=== PATIENT | female | born 1995 | race Caucasian/White ===

== ENCOUNTER 2016-06-19 12:50 | Emergency (ER) | payer OTHER ==
[~2016-06-19] VITALS: Ht 160 cm; Wt 54.5 kg
[~2016-06-19 12:50] MED LIST: FERR325T5 PO; FOLI-49 PO; PREN-39 PO
[2016-06-19 12:54] VITALS: Ht 160 cm; Wt 54.5 kg
[2016-06-19] MEDS ORDERED: FAMOTIDINE 20 MG INJ IV STA (13:00)
[2016-06-19] MEDS ORDERED: ONDANSETRON 4 MG INJ IV STA (13:00)
[2016-06-19] MEDS ORDERED: SOD CHLORIDE 0.9% 1,000 ML IV STA (13:00)
[2016-06-19] MEDS ORDERED: KETOROLAC 30 MG INJ IV STA (13:00)
[2016-06-19 13:32] LABS: ADD SCAN DIFF NO
[2016-06-19 13:54] LABS: POTASSIUM 4.4 mmol/L (3.5-5.1)
[2016-06-19 13:56] LABS: BASOPHILS % 0.2 % (0.0-2.0); BILIRUBIN,INDIRECT 0.3 mg/dl (0-1.1); BILIRUBIN,TOTAL 0.3 mg/dl (0.2-1.3); CREATININE 0.58 mg/dl (0.44-1.00); HEMATOCRIT 41.6 % (37.0-47.0); HEMOGLOBIN 13.6 g/dl (12.0-16.0); LYMPHOCYTES # 1.6 10^3/ul (0.8-2.9); LYMPHOCYTES % 9.3 % (18.0-55.0); MEAN CORPUSCULAR HEMOGLOBIN 27.1 pg (29.0-33.0); MEAN CORPUSCULAR HGB CONC 32.7 g/dl (32.0-37.0); MEAN PLATELET VOLUME 12.1 fl (7.4-10.4); MONOCYTE # 0.5 10^3/ul (0.3-0.9); MONOCYTES % 2.8 % (0.0-13.0); NEUTROPHIL # 14.7 10^3/ul (1.6-7.5); NEUTROPHILS % 87.2 % (30.0-74.0); PLATELET COUNT 319 10^3/UL (140-415); RED BLOOD COUNT 5.01 10^6/ul (4.20-5.40); RED CELL DISTRIBUTION WIDTH 13.9 % (11.5-14.5); WHITE BLOOD COUNT 16.9 10^3/ul (4.8-10.8)
[2016-06-19 13:57] LABS: ALBUMIN/GLOBULIN RATIO 1.38; CALCIUM 10.5 mg/dl (8.4-10.2); TOTAL PROTEIN 8.6 g/dl (6.1-8.1)
[2016-06-19 14:12] LABS: ADD UMIC YES; URINE BILIRUBIN (Dip) NEGATIVE (NEGATIVE); URINE BLOOD (Dip) NEGATIVE (NEGATIVE); URINE COLOR LT. YELLOW (YELLOW); URINE GLUCOSE (Dip) NEGATIVE (NEGATIVE); URINE KETONES (Dip) TRACE (NEGATIVE); URINE LEUKOCYTE ESTERASE (Dip) NEGATIVE (NEGATIVE); URINE NITRITE (Dip) NEGATIVE (NEGATIVE); URINE TOTAL PROTEIN (Dip) 1+ (NEGATIVE); URINE UROBILINOGEN (Dip) 0.2 E.U./dL (0.1-1.0)
[2016-06-19 14:24] LABS: BACTERIA,URINE RARE; URINE RBCS NONE SEEN /HPF (0)
--- NOTE | 2016-06-19 15:10 | RADRPT ---
PROCEDURE: CT Abdomen and Pelvis without contrast CLINICAL INDICATION: Right flank pain TECHNIQUE: Transaxial images were obtained through the abdomen and pelvis on a multi-slice scanner without the intravenous contrast administration. Sagittal and coronal re-formations were subsequen tly reconstructed. One or more of the following dose reduction techniques were used: - Automated exposure control. - Adjustment of the mA and/or kV according to patient size. - Use of iterative reconstruction technique. Radiation dose: CTDIvol = 7.37 mGy; DLP = 415.91 mGy-cm. COMPARISON: No prior studies are available for comparison. FINDINGS: Lung bases: The visualized lung bases appear unremarkable. Liver: Normal in size and in attenuation. There is no focal lesion. Gallbladder: The wall is not thickened. No radiopaque stones are identified. Bile ducts: The intra and extrahepatic bile ducts are normal in caliber. Pancreas: Appears normal with no mass or inflammation evident. Spleen: Normal in size with no focal lesion. Adrenals: Normal with no mass identified. Kidneys, ureters and bladder: The kidneys are normal in size and there is no mass, pathological calc ification, or hydronephrosis evident. There is no perinephric stranding. The ureters are normal in c aliber and no ureteroliths are identified. The bladder appears unremarkable. Reproductive organs: The uterus is midline. There is a right adnexal cyst measuring 7.5 x 6.4 x 5.4 cm located posterior to the uterus anterior to the rectum and to the right of the sigmoid colon. Stomach and bowel: The bowel appears unremarkable with no evidence of bowel obstruction or inflammat ion. The stomach appears unremarkable. Appendix: A normal vermiform appendix is evident. Peritoneum: No free intraperitoneal fluid or air is identified. There is a small fat containing umbi lical hernia. Aorta: Normal in caliber with no aneurysmal dilatation. IVC: Unremarkable. Lymph nodes: No pathologically enlarged nodes are identified. Osseous structures: The osseous elements appear intact. IMPRESSION: 1. There is a large right adnexal cyst measuring 7.5 x 6.4 x 5.4 cm located posterior to the uterus , anterior to the rectum and to the right of the distal sigmoid colon. The density measures 11 HU. 2. There is no evidence of urinary outflow obstruction or ureterolithiasis. The bladder appears no rmal. 3. No evidence of bowel obstruction or inflammation with a normal-appearing vermiform appendix. 4. There is no free intraperitoneal fluid or air. Tahmina Alex Physician Date Time Electronically viewed and signed by Tahmina Alex Physician on 06/19/2016 15:10 /
--- NOTE | 2016-06-19 15:21 | ERD ---
ER Documentation Chief Complaint Date/Time DATE: 06/19/16 TIME: 15:18 Chief Complaint flank pain x 1 hour HPI This is a 20-year-old female who presents to the emergency room for evaluation of flank pain for the past 1 hour. The patient localizes the pain to the right flank with mild radiation to her groin. She does state it is an achy pain and she has vomited once. The patient denies any painful urination, or blood in her urine and came to the emergency room today for evaluation. ROS All systems reviewed and are negative except as per history of present illness. Medications Home Meds Discontinued Reported Medications Folic Acid* (Folic Acid*) 1 Mg Tablet, 1 MG PO DAILY, TAB 02/02/16 Ferrous Sulfate (Ferrous Sulfate) 325 Mg Tablet.dr, 325 MG PO DAILY 02/02/16 Vits W-Ca,Fe,Fa(<1MG) ( Vitamins) 1 Tab Tablet, 1 TAB PO DAILY 07/05/13 Allergies Allergies: Coded Allergies: No Known Allergy (Unverified , 04/13/13) PMhx/Soc Medical and Surgical Hx: pt denies Medical Hx, pt denies Surgical Hx History of Surgery: No Anesthesia Reaction: No Hx Neurological Disorder: No Hx Respiratory Disorders: No Hx Cardiac Disorders: No Hx Psychiatric Problems: No Hx Miscellaneous Medical Probl: No Hx Alcohol Use: Yes Hx Substance Use: No Hx Tobacco Use: No Smoking Status: Current every day smoker Physical Exam Vitals Vital Signs Date Time Temp Pulse Resp B/P Pulse Ox O2 Delivery O2 Flow Rate FiO2 06/19/16 12:54 97.7 90 18 130/87 100 Physical Exam INITIAL VITAL SIGNS: Reviewed by me GENERAL: The patient is well developed and appropriate for usual state of health in no apparent distress HEENT: Pupils equal, round, and reactive to light. EOMI. There is no scleral icterus. NECK: C-spine is soft and supple, there is no meningismus. There is no cervical lymphadenopathy. LUNGS: Clear to auscultation bilaterally. There are no rales, wheezes or rhonchi. HEART: Regular rate and rhythm, no murmurs, clicks, rubs or gallops. ABDOMEN: Right-sided CVAT, otherwise soft, non-tender, non-distended. There are bowel sounds in all four quadrants. No rebound or guarding. EXTREMITIES: There is no peripheral cyanosis or edema. No focal swelling or erythema. NEUROLOGICAL: The patient moves all four extremities with 5/5 strength. Cranial nerves II - XII are intact. Normal gait. Alert and oriented SKIN: There is no apparent rash or petechiae. HEME/LYMPHATIC: There is no evidence of excessive bruising or lymphedema. PSYCHIATRIC: The patient does not appear anxious or depressed. Result Diagram: 06/19/16 1324 06/19/16 1324 Results 24 hrs Laboratory Tests Test 06/19/16 12:57 06/19/16 13:24 Urine Bacteria RARE Urine Bilirubin NEGATIVE Urine Clarity CLEAR Urine Color LT. YELLOW Urine Epithelial Cells RARE Urine Glucose NEGATIVE% Urine Hemoglobin NEGATIVE Urine Ketones TRACE Urine Leukocyte Esterase NEGATIVE Urine Microscopic RBC NONE SEEN/HPF Urine Microscopic WBC 2-5/HPF Urine Nitrite NEGATIVE Urine Specific [place] 1.010 Urine Total Protein 1+ Urine Urobilinogen 0.2 E.U./dL Urine pH 7.0 Alanine Aminotransferase (ALT/SGPT) 36IU/L Albumin 5.0g/dl Albumin/Globulin Ratio 1.38 Alkaline Phosphatase 175IU/L Anion Gap 22 Aspartate Amino Transf (AST/SGOT) 28IU/L Basophils # 0.010^3/ul Basophils % 0.2% Blood Urea Nitrogen 13mg/dl Calcium Level 10.5mg/dl Carbon Dioxide Level 29mmol/L Chloride Level 100mmol/L Creatinine 0.58mg/dl Direct Bilirubin 0.00mg/dl Eosinophils # 0.010^3/ul Eosinophils % 0.0% Globulin 3.60g/dl Glucose Level 105mg/dl Hematocrit 41.6% Hemoglobin 13.6g/dl Indirect Bilirubin 0.3mg/dl Lipase 49U/L Lymphocytes # 1.610^3/ul Lymphocytes % 9.3% Mean Corpuscular Hemoglobin 27.1pg Mean Corpuscular Hemoglobin Concent 32.7g/dl Mean Corpuscular Volume 83.0fl Mean Platelet Volume 12.1fl Monocytes # 0.510^3/ul Monocytes % 2.8% Neutrophils # 14.710^3/ul Neutrophils % 87.2% Nucleated Red Blood Cells # 0.010^3/ul Nucleated Red Blood Cells % 0.0/100WBC Platelet Count 97758^3/UL Potassium Level 4.4mmol/L Red Blood Count 5.0110^6/ul Red Cell Distribution Width 13.9% Sodium Level 147mmol/L Total Bilirubin 0.3mg/dl Total Protein 8.6g/dl White Blood Count 16.910^3/ul Current Medications Medications (Trade) Dose Ordered Sig/Bassem Route PRN Reason Start Time Stop Time Status Last Admin Dose Admin Sodium Chloride (NS) 1,000 ml @ 1,000 mls/hr Q1H STAT IV 06/19/16 13:00 06/19/16 13:59 DC 06/19/16 13:05 Ondansetron HCl (Zofran Inj) 4 mg ONCE STAT IV 06/19/16 13:00 06/19/16 13:03 DC 06/19/16 13:05 Famotidine (Pepcid Iv) 20 mg ONCE STAT IV 06/19/16 13:00 06/19/16 13:03 DC 06/19/16 13:05 Ketorolac Tromethamine (Toradol) 30 mg ONCE STAT IV 06/19/16 13:00 06/19/16 13:03 DC 06/19/16 13:05 Procedures/MDM This 20-year-old female presents to the emergency room for evaluation of right- sided flank pain for the past 1 hour. The patient states that the pain is a sharp pain in when I evaluated her she did have some right-sided costovertebral angle tenderness. The patient states that she vomited once and was given Zofran , Toradol, and IV fluids. Lab work was also drawn and a urinalysis was obtained. Lab work does show leukocytosis, however there is no bacteria in the urine. His CT of the abdomen and pelvis was obtained to rule out appendicitis and or kidney stones. There is no signs of appendicitis on CAT scan. The patient's pain is controlled at this time, however her CAT scan did show large right adnexal cyst. I do feel that this cyst could be a cause of this patient' s pain. I advised her to follow-up with the [employer] physician for ultrasound as an outpatient. The patient verbalized understanding. She is hemodynamically stable, afebrile, no acute distress and will be discharged home with a prescription for Motrin and Zofran. I advised her to return to the ER if her symptoms worsen and she verbalized understanding Departure Diagnosis: Primary Impression: Flank pain Additional Impressions: Leukocytosis Adnexal cyst Condition: Stable EMORY BLEVINS DO Jun 19, 2016 15:21
[2016-06-19] MEDS ORDERED: IBUP800T25 PO (15:23)
[2016-06-19] MEDS ORDERED: ONDA4TAB8 PO (15:23)
[2016-06-20] MEDS ORDERED: MEPERIDINE 25 MG INJ ONE (14:57)
== END 2016-06-19 15:30 | disposition home or self-care (01) ==
LOC: E/R 12:50
DX: R10.9 Unspecified abdominal pain (principal); D72.829 Elevated white blood cell count, unspecified; N83.209 Unspecified ovarian cyst, unspecified side; F17.210 Nicotine dependence, cigarettes, uncomplicated; R11.10 Vomiting, unspecified
CPT/HCPCS: 36415; 74176; 80053; 81001; 83690; 85025; 96374; 96375; J1885; J2405; J7030; Z7502; Z7610; 81003; J2175

== ENCOUNTER 2016-06-19 21:19 | Observation (INO) | payer OTHER ==
[~2016-06-19] VITALS: Ht 162.6 cm; Wt 63.6 kg
[~2016-06-19 21:19] MED LIST changes: +IBUP800T25 PO; +ONDA4TAB8 PO
[2016-06-19] MEDS ORDERED: ONDANSETRON 4 MG INJ IV STA (22:10)
[2016-06-19] MEDS ORDERED: SOD CHLORIDE 0.9% 1,000 ML IV STA (22:10)
[2016-06-19] MEDS ORDERED: morphine 4 MG/ML VIAL IV STA (22:10)
--- NOTE | 2016-06-19 22:49 | RADRPT ---
PROCEDURE: Pelvic ultrasound. CLINICAL INDICATION: Pelvic pain TECHNIQUE: Ching scale, color doppler, spectral doppler ultrasound of the pelvis was performed with transabdominal transducers. COMPARISON: Pelvic ultrasound 02/02/2016, CT abdomen pelvis 06/19/2016 FINDINGS: Uterus: Position: Anteverted. Normal myometrial echogenicity. Normal appearance of the endometrium. Ovaries: Right ovary is enlarged flow. Normal size left ovary appears blood flow. No adnexal masses. 6.8 x 4.8 x 5.5 cm cyst of the right ovary. Free fluid: None. Measurements: Endometrium: 0.18 cm Uterus: 8.7 x 3.6 x 4.5 cm Right ovary: 9.3 x 5.8 x 7.2 cm Left ovary: 3.4 x 1.4 x 3.2 cm IMPRESSION: 6.8 x 4.8 x 5.5 cm cyst of the right ovary is unchanged from the previous examinations. Normal appearance of the uterus and left ovary. RPTAT: AADD .Sathish Longoria MD, MD Date Time Electronically viewed and signed by .Sathish Longoria MD, on 06/19/2016 22:48 .B/
[2016-06-19 23:13] LABS: ADD SCAN DIFF NO
[2016-06-19 23:20] LABS: BASOPHILS % 0.3 % (0.0-2.0); EOSINOPHILS % 0.1 % (0.0-7.0); HEMATOCRIT 37.3 % (37.0-47.0); HEMOGLOBIN 11.9 g/dl (12.0-16.0); LYMPHOCYTES # 2.4 10^3/ul (0.8-2.9); LYMPHOCYTES % 17.3 % (18.0-55.0); MEAN CORPUSCULAR HEMOGLOBIN 26.6 pg (29.0-33.0); MEAN CORPUSCULAR HGB CONC 31.9 g/dl (32.0-37.0); MEAN CORPUSCULAR VOLUME 83.3 fl (72.0-104.0); MEAN PLATELET VOLUME 12.2 fl (7.4-10.4); MONOCYTE # 0.8 10^3/ul (0.3-0.9); MONOCYTES % 5.6 % (0.0-13.0); NEUTROPHIL # 10.7 10^3/ul (1.6-7.5); NEUTROPHILS % 76.4 % (30.0-74.0); PLATELET COUNT 284 10^3/UL (140-415); RED BLOOD COUNT 4.48 10^6/ul (4.20-5.40); RED CELL DISTRIBUTION WIDTH 14.1 % (11.5-14.5); WHITE BLOOD COUNT 13.9 10^3/ul (4.8-10.8)
[2016-06-19] MEDS ORDERED: HYDROmorphONE 1 MG/ML SYG IV STA (23:21)
[2016-06-19 23:24] LABS: ALBUMIN 4.8 g/dl (3.3-4.9); POTASSIUM 3.9 mmol/L (3.5-5.1)
[2016-06-19 23:26] LABS: CREATININE 0.62 mg/dl (0.44-1.00)
[2016-06-19 23:27] LABS: ALBUMIN/GLOBULIN RATIO 1.45; BILIRUBIN,INDIRECT 0.2 mg/dl (0-1.1); BILIRUBIN,TOTAL 0.2 mg/dl (0.2-1.3); CALCIUM 9.9 mg/dl (8.4-10.2); TOTAL PROTEIN 8.1 g/dl (6.1-8.1)
[2016-06-19 23:38] LABS: ADD UMIC YES; URINE BILIRUBIN (Dip) NEGATIVE (NEGATIVE); URINE BLOOD (Dip) TRACE (NEGATIVE); URINE COLOR LT. YELLOW (YELLOW); URINE GLUCOSE (Dip) NEGATIVE (NEGATIVE); URINE KETONES (Dip) TRACE (NEGATIVE); URINE LEUKOCYTE ESTERASE (Dip) 1+ (NEGATIVE); URINE NITRITE (Dip) NEGATIVE (NEGATIVE); URINE TOTAL PROTEIN (Dip) NEGATIVE (NEGATIVE); URINE UROBILINOGEN (Dip) 0.2 E.U./dL (0.1-1.0)
[2016-06-19 23:51] LABS: BACTERIA,URINE OCCASIONAL; SQUAMOUS EPITHELIAL CELL,UR MODERATE; URINE RBCS 0-2 /HPF (0)
[2016-06-20] VITALS (25 sets, daily range): BP systolic 96–136; BP diastolic 6–82; PULSE 70–106; RESP 13–20; TEMP 99; Ht 162.6 cm; Wt 63.6 kg
--- NOTE | 2016-06-20 02:41 | ERD ---
ER Documentation Chief Complaint Date/Time DATE: 06/20/16 TIME: 02:22 Chief Complaint SEEN HERE THIS AM. CYST IN UTERUS. UNABLE TO BEAR PAIN HPI Patient is a 20-year-old female who presents to the emergency department with right-sided pelvic pain. Patient was seen earlier today and diagnosed with a right ovarian cyst. Patient states that her current pain level is a 10 out of 10. Patient states the pain is severe. The pain is localized and does not radiate. Patient states she has been taking ibuprofen with no alleviation of symptoms. She also reports 2 episodes of vomiting. Patient denies any fever, chills, nausea, and with urination, chest pain, shortness of breath or loss of consciousness. She denies any vaginal bleeding or excessive vaginal discharge. Upon chart review, patient CT scan from today performed showed IMPRESSION: 1. There is a large right adnexal cyst measuring 7.5 x 6.4 x 5.4 cm located posterior to the uterus, anterior to the rectum and to the right of the distal sigmoid colon. The density measures 11 HU. 2. There is no evidence of urinary outflow obstruction or ureterolithiasis. The bladder appears normal. 3. No evidence of bowel obstruction or inflammation with a normal-appearing vermiform appendix. 4. There is no free intraperitoneal fluid or air. ROS All systems reviewed and are negative except as per history of present illness. Medications Home Meds Active Scripts Ondansetron Hcl* (Zofran*) 4 Mg Tablet, 4 MG PO Q8H Y for NAUSEA AND/OR VOMITING , #15 TAB Prov:EMORY BLEVINS DO 06/19/16 Ibuprofen* (Motrin*) 800 Mg Tab, 800 MG PO Q6H Y for PAIN AND OR ELEVATED TEMP, #30 TAB Prov:EMORY BLEVINS DO 06/19/16 Discontinued Reported Medications Folic Acid* (Folic Acid*) 1 Mg Tablet, 1 MG PO DAILY, TAB 02/02/16 Ferrous Sulfate (Ferrous Sulfate) 325 Mg Tablet.dr, 325 MG PO DAILY 02/02/16 Vits W-Ca,Fe,Fa(<1MG) ( Vitamins) 1 Tab Tablet, 1 TAB PO DAILY 07/05/13 Allergies Allergies: Coded Allergies: No Known Allergy (Unverified , 04/13/13) PMhx/Soc Medical and Surgical Hx: pt denies Surgical Hx History of Surgery: No Anesthesia Reaction: No Hx Neurological Disorder: No Hx Respiratory Disorders: No Hx Cardiac Disorders: No Hx Psychiatric Problems: No Hx Miscellaneous Medical Probl: Yes (uterine cyst) Hx Alcohol Use: Yes (socially) Hx Substance Use: No Hx Tobacco Use: No Smoking Status: Never smoker FmHx Family History: No diabetes Physical Exam Vitals Vital Signs Date Time Temp Pulse Resp B/P Pulse Ox O2 Delivery O2 Flow Rate FiO2 06/20/16 01:38 99.0 88 18 145/78 98 Room Air 06/19/16 21:30 100.3 103 24 177/72 100 Physical Exam GENERAL: Well-developed, well-nourished female. Appears in no acute distress. HEAD: Normocephalic, atraumatic. EYES: Pupils are equally reactive bilaterally. EOMs grossly intact. No conjunctival erythema. ENT: Moist mucous membranes. No uvula deviation. No kissing tonsils. NECK: Supple. No meningismus. Normal range of motion of the neck. LUNG: Clear to auscultation bilaterally. No rhonchi, wheezing, rales or coarse breath sounds. HEART: Regular rate and rhythm. No murmurs, rubs or gallops. ABDOMEN: No scars, ecchymosis or rashes noted. Soft and nondistended. Tender to palpation of the right pelvic region. Positive bowel sounds in all four quadrants. No rebound tenderness, no guarding. No CVA tenderness. BACK: No midline tenderness. EXTREMITIES: Equal pulses bilaterally. No peripheral clubbing, cyanosis or edema. No unilateral leg swelling. NEUROLOGIC: Alert and oriented. Moving all four extremities without any difficulty. Normal speech. Steady gait. SKIN: Normal color. Warm and dry. No rashes or lesions. Result Diagram: 06/19/16 2300 06/19/16 2300 Results 24 hrs Laboratory Tests Test 06/19/16 23:00 Alanine Aminotransferase (ALT/SGPT) 40IU/L Albumin 4.8g/dl Albumin/Globulin Ratio 1.45 Alkaline Phosphatase 165IU/L Anion Gap 21 Aspartate Amino Transf (AST/SGOT) 29IU/L Basophils # 0.010^3/ul Basophils % 0.3% Blood Urea Nitrogen 15mg/dl Calcium Level 9.9mg/dl Carbon Dioxide Level 26mmol/L Chloride Level 103mmol/L Creatinine 0.62mg/dl Direct Bilirubin 0.00mg/dl Eosinophils # 0.010^3/ul Eosinophils % 0.1% Globulin 3.30g/dl Glucose Level 107mg/dl Hematocrit 37.3% Hemoglobin 11.9g/dl Indirect Bilirubin 0.2mg/dl Lipase 54U/L Lymphocytes # 2.410^3/ul Lymphocytes % 17.3% Mean Corpuscular Hemoglobin 26.6pg Mean Corpuscular Hemoglobin Concent 31.9g/dl Mean Corpuscular Volume 83.3fl Mean Platelet Volume 12.2fl Monocytes # 0.810^3/ul Monocytes % 5.6% Neutrophils # 10.710^3/ul Neutrophils % 76.4% Nucleated Red Blood Cells # 0.010^3/ul Nucleated Red Blood Cells % 0.0/100WBC Platelet Count 67556^3/UL Potassium Level 3.9mmol/L Red Blood Count 4.4810^6/ul Red Cell Distribution Width 14.1% Sodium Level 146mmol/L Total Bilirubin 0.2mg/dl Total Protein 8.1g/dl Urine Bacteria OCCASIONAL Urine Bilirubin NEGATIVE Urine Clarity CLEAR Urine Color LT. YELLOW Urine Glucose NEGATIVE% Urine Hemoglobin TRACE Urine Ketones TRACE Urine Leukocyte Esterase 1+ Urine Microscopic RBC 0-2/HPF Urine Microscopic WBC 5-10/HPF Urine Nitrite NEGATIVE Urine Specific [place] 1.015 Urine Squamous Epithelial Cells MODERATE Urine Total Protein NEGATIVE Urine Urobilinogen 0.2 E.U./dL Urine pH 7.0 White Blood Count 13.910^3/ul Current Medications Medications (Trade) Dose Ordered Sig/Bassem Route PRN Reason Start Time Stop Time Status Last Admin Dose Admin Sodium Chloride (NS) 1,000 ml @ 1,000 mls/hr Q1H STAT IV 06/19/16 22:10 06/19/16 23:09 DC 06/19/16 22:55 Morphine Sulfate (morphine) 4 mg ONCE STAT IV 06/19/16 22:10 06/19/16 22:12 DC 06/19/16 22:47 Ondansetron HCl (Zofran Inj) 4 mg ONCE STAT IV 06/19/16 22:10 06/19/16 22:12 DC 06/19/16 22:46 Hydromorphone HCl (Dilaudid) 1 mg ONCE STAT IV 06/19/16 23:21 06/19/16 23:22 DC 06/19/16 23:26 Procedures/MDM ED COURSE: The patient was stable throughout ED course. I kept the patient and/or family informed of laboratory and diagnostic imaging results throughout the ED course. DIAGNOSTIC IMAGING: Read by radiologist. DIAGNOSTIC IMAGING REPORT Patient: LING SHI : 1995 Age: 20 Sex: F MR #: [id number] DOS: 06/19/16 2210 Ordering MD: FOSTER PRYOR PA-C Location: [facility] Room/Bed: PROCEDURE: Pelvic ultrasound. CLINICAL INDICATION: Pelvic pain TECHNIQUE: Ching scale, color doppler, spectral doppler ultrasound of the pelvis was performed with transabdominal transducers. COMPARISON: Pelvic ultrasound 02/02/2016, CT abdomen pelvis 06/19/2016 FINDINGS: Uterus: Position: Anteverted. Normal myometrial echogenicity. Normal appearance of the endometrium. Ovaries: Right ovary is enlarged flow. Normal size left ovary appears blood flow. No adnexal masses. 6.8 x 4.8 x 5.5 cm cyst of the right ovary. Free fluid: None. Measurements: Endometrium: 0.18 cm Uterus: 8.7 x 3.6 x 4.5 cm Right ovary: 9.3 x 5.8 x 7.2 cm Left ovary: 3.4 x 1.4 x 3.2 cm IMPRESSION: 6.8 x 4.8 x 5.5 cm cyst of the right ovary is unchanged from the previous examinations. Normal appearance of the uterus and left ovary. RPTAT: AADD .Sathish Longoria MD, MD Date Time Electronically viewed and signed by .Sathish Longoria MD, MD on 06/19/2016 22:48 .B/ CC: FOSTER PRYOR PA-C PROCEDURES: None. MEDICATIONS GIVEN: IV fluids, Zofran, morphine, Dilaudid Patient tolerated medication well with no adverse reactions. Patient reported improvement in pain. MEDICAL DECISION MAKING: This is a 20-year-old female who presents with right pelvic pain 1 day. Patient was seen here earlier today and diagnosed with a right ovarian cyst. She was discharged with prescription for ibuprofen however patient states despite taking this medication his pain continues to be severe. Vital signs were reviewed. Patient is afebrile. CBC showed white count of 13.9. Patient's white count has decreased from earlier today which was noted to be 16.9. CMP showed no evidence of electrolyte abnormalities, severe acidosis, alkalosis, renal failure, or liver disease. Alk phos= 165. Lipase showed no evidence of acute pancreatitis. Urinalysis noted to be 1+ leukocyte esterase, 5-10 moderate WBCs, squamous epithelial cells. Sample may be contaminated. Low suspicion for UTI, pyelonephritis or nephrolithiasis. Urine test was negative. Pelvic ultrasound showed 6.8 x 4.8 x 5.5 cm cyst of the right ovary is unchanged from the previous examinations. Normal appearance of the uterus and left ovary. Right ovary is enlarged flow. Normal size left ovary appears blood flow. I discussed the patient's case with the laborist developmental electronics assembler, Dr. George. Given that the patient continues to have pain and the size of the patient's right ovarian cyst, patient will be admitted for observation and pain management. Dr. George requested that the patient be admitted to med surg floor. I discussed the patient's presentation with my supervising physician, Dr. Pearl, who is aware of the patient's admission. At this time, patient's presentation is most consistent with right ovarian cyst with intractable pain. Low suspicion of ovarian torsion, appendicitis, , ectopic , nephrolithiasis. Departure Diagnosis: Primary Impression: Right ovarian cyst Additional Impression: Intractable pain Condition: FOSTER Marcelo PA-C Jun 20, 2016 02:33
[2016-06-20] MEDS: HYDROmorphONE 1 MG/ML SYG IV PRN ×3 (05:29→09:59)
[2016-06-20] MEDS ORDERED: HYDROmorphONE 2 MG/ML SYG IV PRN (05:30)
[2016-06-20] MEDS ORDERED: ONDANSETRON 4 MG INJ IV PRN ×3 (05:30→15:30)
[2016-06-20] MEDS ORDERED: DEXTROSE 5%-LR 1,000 ML IV SCH (05:30)
[2016-06-20] MEDS ORDERED: HYDROmorphONE 1 MG/ML SYG IV STA (12:04)
[2016-06-20] MEDS ORDERED: LIDOCAINE 1%/EPI 30 ML INJ ONE (12:23)
[2016-06-20] MEDS ORDERED: LIDOCAINE 2% (SDV) 5 ML INJ ONE (12:43)
[2016-06-20] MEDS ORDERED: PROPOFOL 20 ML ONE (12:43)
[2016-06-20] MEDS ORDERED: FENTAnyl 50 MCG/ML VIAL ONE (12:43)
[2016-06-20] MEDS ORDERED: SUCCINYLCHOLINE CHLORIDE 100 MG/5 ML SYG IV ONE (12:43)
[2016-06-20] MEDS ORDERED: ROCURONIUM 50 MG INJ ONE (12:44)
[2016-06-20] MEDS ORDERED: MIDAZOLAM 1 MG/ML 2 ML INJ ONE (12:44)
[2016-06-20] MEDS ORDERED: CEFAZOLIN 1 GM INJ ONE (12:44)
--- NOTE | 2016-06-20 12:45 | PREOPHP ---
DATE OF ADMISSION: 06/20/2016 HISTORY OF PRESENT ILLNESS: The patient is a 20-year-old G1, P1 who is currently breast feeding wit h unknown last menstrual period, negative test, presents complaining of right-sided abdomi nal pain. The patient presented to the emergency room twice, today complaining of on and off abdomi nal pain. No nausea, vomiting, fevers, or chills. ALLERGIES: NONE. PAST SURGICAL HISTORY: None. OBSTETRIC HISTORY: x1 approximately 6 to 8 weeks ago. Ultrasound shows a 7 x 6 cm right ovari an cyst, although it shows there is normal blood flow. LABORATORY DATA: Hemoglobin is 11.9. ASSESSMENT: This is a 20-year-old with a 7 cm right ovarian cyst. The patient complains of intermi ttent pain. The patient has been seen twice in the emergency room for abdominal pain, and the patie nt currently is requiring Dilaudid, multiple doses, for pain control. The patient was consented for a laparoscopic, possible laparotomy with a right cystectomy, possible oophorectomy. Discussed the patient possibly has intermittent torsion and would require surgical management. Risks and benefits discussed. The risk of infection, bleeding, damage to other organs, possible blood transfusion, po ssible oophorectomy, all discussed with the patient. All questions answered. Again, the patient to the OR for a laparoscopy, possible laparotomy with a right cystectomy, possible oophorectomy. Dictated By: KASIA BARNETT MD /NTS Conf#: [id number] DID#: [id number]
[2016-06-20] MEDS ORDERED: OXYCODONE/ACETAMINOPHEN (5/325) TAB PO PRN ×2 (13:00)
[2016-06-20] MEDS ORDERED: HYDROmorphONE (0.2 MG/ML) 10ML SYG IV PRN ×2 (13:00)
[2016-06-20] MEDS ORDERED: PROCHLORPERAZINE 10 MG INJ IV PRN (13:00)
[2016-06-20] MEDS ORDERED: DIPHENHYDRAMINE 50 MG INJ IV PRN (13:00)
[2016-06-20] MEDS ORDERED: METOCLOPRAMIDE 10 MG INJ IV PRN (13:00)
[2016-06-20] MEDS ORDERED: MEPERIDINE 25 MG INJ IV PRN (13:00)
[2016-06-20] MEDS ORDERED: FENTAnyl 50 MCG/ML VIAL IV PRN (13:00)
[2016-06-20] MEDS ORDERED: DEXAMETHASONE 4 MG/ML 1 ML INJ ONE (13:08)
[2016-06-20] MEDS ORDERED: ONDANSETRON 4 MG INJ ONE (13:08)
[2016-06-20] MEDS ORDERED: NEOSTIGMINE 3 MG/3 ML SYRINGE ONE (14:19)
[2016-06-20] MEDS ORDERED: GLYCOPYRROLATE 0.4 MG INJ ONE (14:19)
[2016-06-20] MEDS ORDERED: LIDOCAINE 1%/EPI 30 ML INJ INJ ONE (14:41)
[2016-06-20] MEDS ORDERED: HYDROCODONE/APAP (5/325) TAB PO PRN ×2 (15:30)
[2016-06-20] MEDS ORDERED: IBUPROFEN 800 MG TAB PO PRN (15:30)
[2016-06-20] MEDS ORDERED: morphine 4 MG/ML VIAL IV PRN (15:30)
[2016-06-20] MEDS: LACTATED RINGER'S 1,000 ML IV* SCH (21:00)
--- NOTE | 2016-06-20 23:14 | OPR ---
DATE OF OPERATION: PREOPERATIVE DIAGNOSES: 1. Right ovarian cyst. 2. Ovarian torsion. POSTOPERATIVE DIAGNOSES: 1. Right ovarian cyst. 2. Ovarian torsion. PROCEDURE: Laparoscopy with a right ovarian detorsion and right ovarian cystectomy. SURGEON: Chandler Barnett MD COMPLICATIONS: None. ESTIMATED BLOOD LOSS: Minimal. SPECIMENS: Ovarian cyst. INDICATIONS FOR PROCEDURE: This is a 20-year-old G1, P0 who presented to the emergency room complaining of right flank abdominal pain. The patient was discharged home, but then returned to the hospital complaining of increased right flank pain. The patient was diagnosed with an approximately 7 cm ovarian cyst. Ultrasound did show that there was flow. The patient was admitted overnight on the ____. I took over management of the patient on the __morning approx 8 am__. Upon evaluating the patient this morning, the patient had no pain. We proceeded with observation; however, __later in the day __ the patient started having increased abdominal pain requiring Dilaudid. At this point, the patient was consented for a laparoscopy with right ovarian cystectomy. DESCRIPTION OF PROCEDURE: The patient was taken to the operating room where general anesthetic was found to be adequate. The patient was then prepped and draped in normal sterile fashion. _identity ___ confirmed. Using a scalpel, approximately 1 cm incision was made infraumbilically. The incision was then extended slightly. The Veress needle was placed intraabdominally. Proper placement was confirmed with the syringe test. CO2 insufflation was started at 2 liters a minute. Once proper placement was confirmed, the CO2 gas was insufflated until proper pressure was obtained. Next, the incision was slightly enlarged until a 12 mm trocar could be placed infraumbilically. Trocar was placed. The camera placed in. Next, a 5 mm trocar was placed suprapubically under direct observation without any difficulty. Next, a left lateral trocar was also placed approximately 8 cm superior to the pubic bone approximately 6 to 7 cm laterally on the left side. Again this was done under direct observation of the camera. Next, it was noted that the ovary on the right side had been torsed approximately 3 to 4 times. The fallopian tubes were both distended and swollen. Next, the ovary was detorsed with 2 graspers. Next, the ovarian cystectomy was performed. Using a Bovie, a small incision was made in the avascular side of the ovarian cyst. Post this, however, the ovarian cyst ruptured. Clear, nonsuspicious fluid was ____ from the cyst. This was suctioned out. Next, the ovarian cyst wall was then carefully removed from the ovary without any complications. The cyst wall was removed and sent to pathology. Post the detorsion and cystectomy, the ovary did regain some blood flow. No necrotic tissue was obtained. At this point, the fact that the ovary seemed to have adequate blood flow we did not feel the need oophorectomy was necessary. Again, the fallopian tube regained color and the ovary, although appeared purple color, it did regain better color post the detorsion and post ovarian cystectomy. Next, some Surgicel was placed inside the ovary. Some small areas of bleeding were ligated with a LigaSure and some Surgifoam was placed also on top of the ovary to ensure proper hemostasis. On second look , there was good hemostasis on the ovary. The ovary was detorsed. It appeared to be in good condition. The left ovary and tube were normal. Next, the gas was removed. The suprapubic trocar was removed under direct observation. Left lateral trocar was also removed under direct observation. After the gas had been removed, the infraumbilical trocar was also removed. Next, the infraumbilical incision site was closed with 0 Vicryl on a UR6 in running fashion until the fascia was closed. Next, the skin was closed with 4-0 Monocryl and Dermabond. Marcaine was also used for pain control. The patient tolerated the procedure well. Lap and needle counts were correct x2. The patient to recovery. Dictated By: CHANDLER BARNETT MD /NTS Conf#: [id number] DID#: [id number] CC: KANDICE CAMARA MD;*EndCC* MTDD
[2016-06-21 04:57] LABS: ADD SCAN DIFF NO
[2016-06-21] MEDS: LACTATED RINGER'S 1,000 ML IV* SCH ×2 (05:03→07:30)
[2016-06-21 05:04] LABS: BASOPHILS % 0.1 % (0.0-2.0); HEMATOCRIT 30.6 % (37.0-47.0); HEMOGLOBIN 9.7 g/dl (12.0-16.0); LYMPHOCYTES % 15.6 % (18.0-55.0); MEAN CORPUSCULAR HEMOGLOBIN 26.9 pg (29.0-33.0); MEAN CORPUSCULAR HGB CONC 31.7 g/dl (32.0-37.0); MEAN PLATELET VOLUME 12.5 fl (7.4-10.4); MONOCYTE # 0.7 10^3/ul (0.3-0.9); MONOCYTES % 5.5 % (0.0-13.0); NEUTROPHIL # 10.1 10^3/ul (1.6-7.5); NEUTROPHILS % 78.5 % (30.0-74.0); PLATELET COUNT 208 10^3/UL (140-415); WHITE BLOOD COUNT 12.8 10^3/ul (4.8-10.8)
[2016-06-21 05:20] VITALS: BP 101/54; PULSE 64; RESP 18
[2016-06-21 05:51] LABS: ALBUMIN 3.2 g/dl (3.3-4.9); POTASSIUM 4.1 mmol/L (3.5-5.1)
[2016-06-21 05:53] LABS: BILIRUBIN,INDIRECT 0.1 mg/dl (0-1.1); BILIRUBIN,TOTAL 0.1 mg/dl (0.2-1.3); CREATININE 0.62 mg/dl (0.44-1.00)
[2016-06-21 05:54] LABS: ALBUMIN/GLOBULIN RATIO 1.23; CALCIUM 9.2 mg/dl (8.4-10.2); TOTAL PROTEIN 5.8 g/dl (6.1-8.1)
[2016-06-21 08:09] VITALS: BP 99/55; RESP 16
--- NOTE | 2016-06-21 10:43 | DS ---
Date/Time of Note Date/Time of Note DATE: 06/21/16 TIME: 10:28 Discharge Summary Admission/Discharge Info Admit Date/Time June 20, 2016 Discharge Date/Time June 21, 2016 Final Diagnosis Twisted right adnexa Twisted right ovarian cyst Patient Condition: Good Consults This is a 21 years old 1 para 0 who had repeated complaint of the sharp right lower quadrant pain. She was seen at least 3 times in the emergency room with complain of the right lower quadrant pain The ultrasound revealed a mass of about 7 cm in diameter on the right ovary Finally which when she came in with the same complaint yesterday she was admitted in the hospital And underwent a year laparoscopic exploration and removal of the twisted right ovarian cyst and untwisting the right adnexa including ovary and tube. Today which is her first postop day she is doing well. She is afebrile basically no complaint of pain On exam her abdomen is soft very difficult tenderness. No rebound. No CVA The small incisions are healing well As I mentioned patient is doing very well and is ready to go home She was discharged home. I gave a prescription for Motrin 600 mg to be taken every 6-8 hours as needed pain She is advised to return to emergency room in case of severe pain ,dizziness, nausea and vomiting, or any other respiratory or other serious problem . She understands all of those and will go home with prescription End of dictation thank you20 Laboratory Tests Test 06/21/16 04:30 Alanine Aminotransferase (ALT/SGPT) 39IU/L Albumin 3.2g/dl Albumin/Globulin Ratio 1.23 Alkaline Phosphatase 81IU/L Anion Gap 12 Aspartate Amino Transf (AST/SGOT) 21IU/L Basophils # 0.010^3/ul Basophils % 0.1% Blood Urea Nitrogen 10mg/dl Calcium Level 9.2mg/dl Carbon Dioxide Level 29mmol/L Chloride Level 104mmol/L Creatinine 0.62mg/dl Direct Bilirubin 0.00mg/dl Eosinophils # 0.010^3/ul Eosinophils % 0.0% Globulin 2.60g/dl Glucose Level 116mg/dl Hematocrit 30.6% Hemoglobin 9.7g/dl Indirect Bilirubin 0.1mg/dl Lymphocytes # 2.010^3/ul Lymphocytes % 15.6% Mean Corpuscular Hemoglobin 26.9pg Mean Corpuscular Hemoglobin Concent 31.7g/dl Mean Corpuscular Volume 85.0fl Mean Platelet Volume 12.5fl Monocytes # 0.710^3/ul Monocytes % 5.5% Neutrophils # 10.110^3/ul Neutrophils % 78.5% Nucleated Red Blood Cells # 0.010^3/ul Nucleated Red Blood Cells % 0.0/100WBC Platelet Count 12465^3/UL Potassium Level 4.1mmol/L Red Blood Count 3.6010^6/ul Red Cell Distribution Width 14.0% Sodium Level 141mmol/L Total Bilirubin 0.1mg/dl Total Protein 5.8g/dl White Blood Count 12.810^3/ul Current Medications Medications (Trade) Dose Ordered Sig/Bassem Route PRN Reason Start Time Stop Time Status Last Admin Dose Admin Sodium Chloride (NS) 1,000 ml @ 1,000 mls/hr Q1H STAT IV 06/19/16 22:10 06/19/16 23:09 DC 06/19/16 22:55 Morphine Sulfate (morphine) 4 mg ONCE STAT IV 06/19/16 22:10 06/19/16 22:12 DC 06/19/16 22:47 Ondansetron HCl (Zofran Inj) 4 mg ONCE STAT IV 06/19/16 22:10 06/19/16 22:12 DC 06/19/16 22:46 Hydromorphone HCl (Dilaudid) 1 mg ONCE STAT IV 06/19/16 23:21 06/19/16 23:22 DC 06/19/16 23:26 Hydromorphone HCl (Dilaudid) 1 mg Q4H PRN IV PAIN 06/20/16 05:30 06/20/16 09:59 Hydromorphone HCl (Dilaudid) 2 mg Q4H PRN IV PAIN 06/20/16 05:30 Ondansetron HCl 4 mg 4 mg Q6H PRN IV NAUSEA AND/OR VOMITING 06/20/16 05:30 06/20/16 15:22 DC Dextrose/Lactated Ringer's (D5-Lr) 1,000 ml @ 125 mls/hr Q8H IV 06/20/16 05:30 06/20/16 15:18 DC 06/20/16 05:30 Hydromorphone HCl (Dilaudid) 1 mg ONCE STAT IV 06/20/16 12:04 06/20/16 12:09 DC 06/20/16 12:32 Lidocaine/ Epinephrine (Xylocaine 1%/ Epi) 30 ml STK-MED ONCE .ROUTE 06/20/16 12:23 06/20/16 12:24 DC Hydromorphone HCl (Dilaudid (Rec)) 0.2 mg PACU ORDER PRN IV MILD PAIN LEVEL 1-3 06/20/16 13:00 06/20/16 15:18 DC Hydromorphone HCl (Dilaudid (Rec)) 0.4 mg PACU ORDER PRN IV MODERATE PAIN LEVEL 4-6 06/20/16 13:00 06/20/16 15:18 DC Fentanyl (Sublimaze) 25 mcg PACU ORDER PRN IV MILD PAIN LEVEL 1-3 06/20/16 13:00 06/20/16 15:18 DC Oxycodone/ Acetaminophen (Percocet (5/ 325)) 1 tab PACU ORDER PRN PO PAIN LEVEL 1-5 06/20/16 13:00 06/20/16 15:18 DC Oxycodone/ Acetaminophen (Percocet (5/ 325)) 2 tab PACU ORDER PRN PO PAIN LEVEL 6-10 06/20/16 13:00 06/20/16 15:19 DC Ondansetron HCl (Zofran Inj) 4 mg PACU ORDER PRN IV NAUSEA AND/OR VOMITING 06/20/16 13:00 06/20/16 15:19 DC Metoclopramide HCl (Reglan) 10 mg PACU ORDER PRN IV NAUSEA AND/OR VOMITING 06/20/16 13:00 06/20/16 15:19 DC Prochlorperazine (Compazine Inj) 5 mg PACU ORDER PRN IV NAUSEA AND/OR VOMITING 06/20/16 13:00 06/20/16 15:19 DC Meperidine HCl (Demerol) 25 mg PACU ORDER PRN IV POST-OP RIGORS 06/20/16 13:00 06/20/16 15:19 DC 06/20/16 15:01 Diphenhydramine HCl (Benadryl) 25 mg PACU ORDER PRN IV PRURITUS 06/20/16 13:00 06/20/16 15:19 DC Lidocaine (Xylocaine 2% (Sdv)) 100 mg STK-MED ONCE .ROUTE 06/20/16 12:43 06/20/16 12:44 DC Succinylcholine Chloride 100 mg 100 mg STK-MED ONCE IV 06/20/16 12:43 06/20/16 12:44 DC Propofol (Diprivan) 20 ml @ ud STK-MED ONCE .ROUTE 06/20/16 12:43 06/20/16 12:44 DC Fentanyl (Sublimaze) 100 mcg STK-MED ONCE .ROUTE 06/20/16 12:43 06/20/16 12:44 DC Midazolam HCl (Versed) 2 mg STK-MED ONCE .ROUTE 06/20/16 12:44 06/20/16 12:45 DC Rocuronium [place] (Zemuron) 50 mg STK-MED ONCE .ROUTE 06/20/16 12:44 06/20/16 12:45 DC Cefazolin Sodium (Ancef) 1 gm STK-MED ONCE .ROUTE 06/20/16 12:44 06/20/16 12:45 DC Ondansetron HCl (Zofran Inj) 4 mg STK-MED ONCE .ROUTE 06/20/16 13:08 06/20/16 13:09 DC Dexamethasone (Decadron) 4 mg STK-MED ONCE .ROUTE 06/20/16 13:08 06/20/16 13:09 DC Neostigmine Methylsulfate (Neostigmine) 3 mg STK-MED ONCE .ROUTE 06/20/16 14:19 06/20/16 14:20 DC Glycopyrrolate (Robinul) 0.4 mg STK-MED ONCE .ROUTE 06/20/16 14:19 06/20/16 14:20 DC Lidocaine/ Epinephrine 30 ml 30 ml STK-MED ONCE INJ 06/20/16 14:41 06/20/16 15:01 DC 06/20/16 14:41 Lactated Ringer's (Lr) 1,000 ml @ 125 mls/hr Q8H IV* 06/20/16 15:30 06/21/16 05:03 Ibuprofen (Motrin) 800 mg Q6H PRN PO MILD PAIN LEVEL 1-3 06/20/16 15:30 06/20/16 23:06 Acetaminophen/ Hydrocodone Bitart ([place] (5/325)) 1 tab Q4H PRN PO MODERATE PAIN 06/20/16 15:30 Acetaminophen/ Hydrocodone Bitart ([place] (5/325)) 2 tab Q4H PRN PO MODERATE PAIN 06/20/16 15:30 Morphine Sulfate (morphine) 3 mg Q3H PRN IV SEVERE PAIN 06/20/16 15:30 Ondansetron HCl (Zofran Inj) 4 mg Q6H PRN IV NAUSEA AND/OR VOMITING 06/20/16 15:30 Hospital Course Post OP she is doing well and ready to go home Home Meds Active Scripts Ondansetron Hcl* (Zofran*) 4 Mg Tablet, 4 MG PO Q8H Y for NAUSEA AND/OR VOMITING , #15 TAB Prov:EMORY BLEVINS DO 06/19/16 Ibuprofen* (Motrin*) 800 Mg Tab, 800 MG PO Q6H Y for PAIN AND OR ELEVATED TEMP, #30 TAB Prov:EMORY BLEVINS DO 06/19/16 Discontinued Reported Medications Folic Acid* (Folic Acid*) 1 Mg Tablet, 1 MG PO DAILY, TAB 02/02/16 Ferrous Sulfate (Ferrous Sulfate) 325 Mg Tablet.dr, 325 MG PO DAILY 02/02/16 Vits W-Ca,Fe,Fa(<1MG) ( Vitamins) 1 Tab Tablet, 1 TAB PO DAILY 07/05/13 Pending Labs Laboratory Tests Test 06/21/16 04:30 Alanine Aminotransferase (ALT/SGPT) 39IU/L (13-69) Albumin 3.2g/dl (3.3-4.9) Albumin/Globulin Ratio 1.23 Alkaline Phosphatase 81IU/L (42-121) Anion Gap 12 (8-16) Aspartate Amino Transf (AST/SGOT) 21IU/L (15-46) Basophils # 0.010^3/ul (0.0-0.1) Basophils % 0.1% (0.0-2.0) Blood Urea Nitrogen 10mg/dl (7-20) Calcium Level 9.2mg/dl (8.4-10.2) Carbon Dioxide Level 29mmol/L (21-31) Chloride Level 104mmol/L (97-110) Creatinine 0.62mg/dl (0.44-1.00) Direct Bilirubin 0.00mg/dl (0.00-0.20) Eosinophils # 0.010^3/ul (0.0-0.5) Eosinophils % 0.0% (0.0-7.0) Globulin 2.60g/dl (1.3-3.2) Glucose Level 116mg/dl (70-220) Hematocrit 30.6% (37.0-47.0) Hemoglobin 9.7g/dl (12.0-16.0) Indirect Bilirubin 0.1mg/dl (0-1.1) Lymphocytes # 2.010^3/ul (0.8-2.9) Lymphocytes % 15.6% (18.0-55.0) Mean Corpuscular Hemoglobin 26.9pg (29.0-33.0) Mean Corpuscular Hemoglobin Concent 31.7g/dl (32.0-37.0) Mean Corpuscular Volume 85.0fl (72.0-104.0) Mean Platelet Volume 12.5fl (7.4-10.4) Monocytes # 0.710^3/ul (0.3-0.9) Monocytes % 5.5% (0.0-13.0) Neutrophils # 10.110^3/ul (1.6-7.5) Neutrophils % 78.5% (30.0-74.0) Nucleated Red Blood Cells # 0.010^3/ul (0.0-0.0) Nucleated Red Blood Cells % 0.0/100WBC (0.0-0.0) Platelet Count 89919^3/UL (140-415) Potassium Level 4.1mmol/L (3.5-5.1) Red Blood Count 3.6010^6/ul (4.20-5.40) Red Cell Distribution Width 14.0% (11.5-14.5) Sodium Level 141mmol/L (135-144) Total Bilirubin 0.1mg/dl (0.2-1.3) Total Protein 5.8g/dl (6.1-8.1) White Blood Count 12.810^3/ul (4.8-10.8) MARITO TURK MD Jun 21, 2016 10:40
== END 2016-06-21 12:00 | disposition home or self-care (01) ==
LOC: FTE 21:19 → MS1 06-20 01:39
PROVIDERS: ADMIT Obstetrics & Gynecology; ATTEND Obstetrics & Gynecology
DX: D27.0 Benign neoplasm of right ovary (principal)
CPT/HCPCS: 36415; 58662; 76856; 80053; 81001; 83690; 84703; 85025; 88305; 96361; 96374; 96375; 96376; J0330; J0690; J1100; J1170; J2250; J2270; J2405; J2710; J3010; J7030; J7120; J7121; Z7500; Z7502; Z7512; Z7610; 81003; G0378

== ENCOUNTER 2017-06-01 12:30 | Outpatient (CLI) | END 2017-06-01 14:33 | disposition home or self-care (01) ==

== ENCOUNTER 2017-06-14 15:21 | Outpatient (CLI) | END 2017-06-15 00:01 | disposition home or self-care (01) ==

== ENCOUNTER 2017-06-15 00:07 | Emergency (ER) | END 2017-06-15 01:54 | disposition left against medical advice (07) ==

== ENCOUNTER 2017-12-06 00:29 | Emergency (ER) | END 2017-12-06 04:49 | disposition left against medical advice (07) ==

== ENCOUNTER 2017-12-06 06:51 | Emergency (ER) | END 2017-12-06 08:35 | disposition home or self-care (01) ==

== ENCOUNTER 2017-12-07 09:52 | Inpatient (IN) | END 2017-12-10 11:45 | disposition home or self-care (01) | DRG 418 ==